=== PATIENT | female | born 1940 | race Caucasian/White ===

== ENCOUNTER 2017-12-26 21:58 | Inpatient (IN) | payer OTHER ==
[~2017-12-26] VITALS: Ht 165.1 cm; Wt 68.0 kg
[~2017-12-26 21:58] MED LIST: CALCIUM 500 MG1 EACH PO; IRON325 M1 PO; LIPITOR40 MG PO; PANTOPRAZOLE SO40 MG PO; PREMARIN0.625 MG PO; SALINE NASAL SP45 ML BOTH NARES; SYNTHROID75 MCG PO; TOPROL XL25 MG PO; TYLENOL EXTRA500 MG PO; VALIUM2 MG PO
[2017-12-27 05:59] VITALS: BP 163/79
[2017-12-27 12:16] VITALS: BP 122/90
[2017-12-27 12:41] VITALS: BP 124/60
[2017-12-27 15:47] VITALS: BP 121/59
[2017-12-27 20:26] VITALS: BP 143/67
[2017-12-28 00:30] VITALS: BP 116/59
[2017-12-28 04:00] VITALS: BP 110/55
[2017-12-28 06:24] LABS: HEMATOCRIT 33.2 % (36.0-46.0); MCV 91.2 FL (83-99)
[2017-12-28 06:29] LABS: HEMOGLOBIN 11.4 G/DL (11.9-15.5)
[2017-12-28 06:47] LABS: CHLORIDE 101 MEQ/L (99-109); CREATININE 0.7 MG/DL (0.6-1.3); GFR ESTIMATE (CALCULATED) > 59 mL/min/; GLUCOSE 120 mg/dL (70-99); POTASSIUM 4.3 MEQ/L (3.7-5.4); SODIUM 136 MEQ/L (136-147); UREA NITROGEN (BUN) 8 mg/dL (9-23)
[2017-12-28 08:05] VITALS: BP 128/60
[2017-12-28 11:45] VITALS: BP 165/70
[2017-12-28 15:33] VITALS: BP 129/75
[2017-12-28 19:53] VITALS: BP 129/60
[2017-12-29 00:30] VITALS: BP 125/58
[2017-12-29 04:12] VITALS: BP 117/56
[2017-12-29 06:15] LABS: HEMOGLOBIN 10.8 G/DL (11.9-15.5); MCV 91.4 FL (83-99)
[2017-12-29 08:19] VITALS: BP 115/55
[2017-12-29 12:08] VITALS: BP 115/54
[2017-12-29 16:09] VITALS: BP 123/57
[2017-12-29 20:14] VITALS: BP 121/57
[2017-12-30 00:30] VITALS: BP 119/56
[2017-12-30 04:23] VITALS: BP 130/59
[2017-12-30 07:44] VITALS: BP 118/56
[2017-12-30] MEDS ORDERED: CELECOXIB200 MG PO (09:27)
[2017-12-30] MEDS ORDERED: OXYCODONE HCL5 MG PO (09:27)
[2017-12-30] MEDS ORDERED: ELIQUIS2.5 MG PO (09:27)
[2017-12-30 12:08] VITALS: BP 117/53
== END 2017-12-30 14:15 | DRG 470 ==
LOC: ENRESERV 21:58 → 2SOUTH 12-27 05:30 → 3WEST 12-27 05:30 → 2SOUTH 12-27 11:34 → 3WEST 12-27 12:10 → 2SOUTH 12-27 14:36 → 3WEST 12-30 14:15
PROVIDERS: Orthopaedic Surgery
PROC: 0SR902A Replacement of Right Hip Joint with Metal on Polyethylene Synthetic Substitute, Uncemented, Open Approach (ICD-10-PCS; principal; 2017-12-27)
DX: M16.11 Unilateral primary osteoarthritis, right hip (principal); I10 Essential (primary) hypertension; I25.10 Atherosclerotic heart disease of native coronary artery without angina pectoris; E78.5 Hyperlipidemia, unspecified; E03.9 Hypothyroidism, unspecified; K21.9 Gastro-esophageal reflux disease without esophagitis; K64.9 Unspecified hemorrhoids; G47.30 Sleep apnea, unspecified; Z91.013 Allergy to seafood; Z91.040 Latex allergy status; Z85.41 Personal history of malignant neoplasm of cervix uteri; Z87.891 Personal history of nicotine dependence; Z79.01 Long term (current) use of anticoagulants; Z80.0 Family history of malignant neoplasm of digestive organs; Z83.3 Family history of diabetes mellitus; Z82.49 Family history of ischemic heart disease and other diseases of the circulatory system
CPT/HCPCS: 71045; 73501; 80048; 85014; 85018; 97530 GP; C1713; J0131; J0690; J1100; J1170; J1885; J2250; J2405; J3010; J7050; Q0175; S0020